=== PATIENT | female | born 1995 | race Asian ===

== ENCOUNTER 2017-03-08 07:46 | Inpatient (IN) | payer OTHER ==
[~2017-03-08] VITALS: Ht 160 cm; Wt 77.1 kg
--- NOTE | 2017-03-08 08:08 | NUR ---
MSE COMPLETED BY DR KRAMER.
--- NOTE | 2017-03-08 08:11 | NUR ---
RT AT BEDSIDE.
--- NOTE | 2017-03-08 08:14 | NUR ---
SALESPERSON AUTOMOBILES AT BEDSIDE.
--- NOTE | 2017-03-08 08:18 | NUR ---
PT MEDICATED WITH SOLUMEDROL SLOW IVP PER ORDERS, PT DENIES ALLERGIES TO MEDICATIONS, NS INFUSING PER ORDERS, IV SITE PATENT, NO REDNESS OR SWELLING NOTED. PT DENIES ALLERGIES TO MEDICATIONS.
--- NOTE | 2017-03-08 08:18 | NUR ---
X-RAY AT BEDSIDE.
[2017-03-08 08:22] LABS: BASOPHIL % 0.2 % (0-2); PLATELET COUNT 208 x10^3mcL (130-400); RED CELL DISTRIBUTION WIDTH 13.5 % (11.5-14.5)
[2017-03-08 08:40] LABS: ALBUMIN 3.8 g/dL (3.4-5.0); ALKALINE PHOSPHATASE 64 U/L (46-116); ALT/SGPT 33 U/L (14-59); AST/SGOT 21 U/L (15-37); BILIRUBIN TOTAL 0.58 mg/dL (0.20-1.00); CALCIUM 8.8 mg/dL (8.5-10.1); CARBON DIOXIDE 25.1 mmol/L (21-32); CHLORIDE SERUM 104 mmol/L (98-107); CREATININE SERUM 0.7 mg/dL (0.6-1.0); GFR1 > 60 mL/min; GLUCOSE SERUM 100 mg/dL (74-106); POTASSIUM SERUM 4.1 mmol/L (3.5-5.1); SODIUM SERUM 139 mmol/L (136-145); TOTAL PROTEIN, SERUM 7.3 g/dL (6.4-8.2)
--- NOTE | 2017-03-08 08:42 | NUR ---
BREATHING TREATMENT #2 IN PROGRESS, MOTHER AT BEDSIDE AND WITH RT LUIS DANIEL.
--- NOTE | 2017-03-08 09:18 | NUR ---
DR KRAMER AT BEDSIDE TO RE-EVALUATE PT. PT REPORTS FEELING BETTER, PT RESTING COMFORTABLY IN BED WITH NO DISTRESS NOTED. PTS MOTHER AT BEDSIDE.
--- NOTE | 2017-03-08 09:28 | NUR ---
DR KRAMER AT BEDSIDE TO DISCUSS PLAN OF CARE WITH PT AND PTS MOTHER.
[2017-03-08] MEDS ORDERED: XOPENEX HF0.045 MG/1 IH (09:30)
--- NOTE | 2017-03-08 09:40 | NUR ---
TOOK TELEPHONE ORDERS FROM DR GONZALES TO ADMIT PT TO TELE. ORDERS READ BACK AND VERIFIED.
--- NOTE | 2017-03-08 10:12 | NUR ---
REPORT GIVEN TO STACEY TO ASSUME CARE OF PT.
--- NOTE | 2017-03-08 10:33 | NUR ---
SECOND LITER OF NS INFUSING PER DR KRAMER ORDERS, IV SITE PATENT, NO REDNESS OR SWELLING NOTED.
--- NOTE | 2017-03-08 11:00 | NUR ---
PT RECEIVED FROM ER AWAKE, ALERT AND ORIENTED. WITH MILD SOB ON EXC.NO ACUTE RESP. DISTRESS NOTED.ON RA SATS 94%. VS WNL. IVF INFUSING WELL AND SITE CLEAR. PT ORIENTED TO ROOM, CALL LIGHT WITHIN REACH. FAMILY AT BEDSIDE. ADMISSION ASSESMENT COMPLETED. WILL CONTINUE W/PLAN OF CARE.
[2017-03-08 11:48] VITALS: BP 106/51
[2017-03-08 12:42] VITALS: BP 106/51
[2017-03-08 13:46] VITALS: BP 106/51
[2017-03-08 16:52] VITALS: BP 106/53
--- NOTE | 2017-03-08 17:40 | NUR ---
PT RECEIVED HHN TX WITH GOOD RELIEF. NO SOB NOTED AT THIS TIME. FAMILY AT BEDSIDE. NO C/O PAIN OR DISCOMFORT
--- NOTE | 2017-03-08 19:24 | NUR ---
REMAINS IN NO DISTRESS. FAMILY AT BEDSIDE. NO SOB NOTED AT THIS TIME. NO C/O PAIN OR DISCOMFORT. CALL LIGHT WITHIN EACH. WILL BE ENDORSED TO INCOMING SHIFT.
--- NOTE | 2017-03-08 20:02 | NUR ---
PATIENT AWAKE IN BED. RESPIRATION EVEN AND UNLABORED, ON O2 AT 2L PER NASAL CANNULA, ON RT PROTOCOL. ONGOING 0.9 NS AT 10 CC/HR INFUSING WELL AT THE LEFT ANTECUBITAL AREA. DENIES PAIN AT THIS TIME. VOIDING FREELY WITHOUT DIFFICULTY. SKIN DRY AND INTACT. SCD'S TO BLE. ON TELE #3. WILL CONTINUE TO MONITOR.
[2017-03-08 21:29] VITALS: BP 121/47
[2017-03-09 06:19] VITALS: BP 133/54
[2017-03-09 06:23] LABS: PLATELET COUNT 195 x10^3mcL (130-400); RED CELL DISTRIBUTION WIDTH 13.7 % (11.5-14.5)
--- NOTE | 2017-03-09 06:38 | NUR ---
PATIENT ASLEEP IN BED. NO ACUTE DISTRESS NOTED, ON O2 2L PER NASAL CANNULA. MOTHER STAYED OVERNIGHT. IV SITE NO SIGN OF INFILTRATION. ASSISTED WITH NEEDS. SAFETY OBSERVED. PLACED CALL LIGHT WITHIN REACH AT ALL TIMES.
[2017-03-09 06:41] LABS: BASOPHIL % 0 % (0-2)
--- NOTE | 2017-03-09 07:39 | NUR ---
PT WAS ENDORSE TO ME, PT IS SLEEPING, NO ACUTE DISTRESS NOTED OR PAIN. PT ON 2L NC, IV INTACT, NO SWELLING OR REDNESS NOTED. CALL LIGHT IN REACH BED IN LOW POSITION, WILL CONTINUE PLAN OF CARE.
[2017-03-09 08:37] VITALS: BP 107/53
--- NOTE | 2017-03-09 09:00 | NUR ---
PT TOLERATED MORNING MED. PT FATHER AT BEDSIDE, SHE DENIES ANY ACUTE RESP DISTRESS OR DISCOMFORT AT THIS TIME. CALL LIGHT IN REACH, BED IN LOW POSITION, WILL CONTINUE PLAN OF CARE.
--- NOTE | 2017-03-09 12:41 | NUR ---
PT IS SITTING UP IN BED HAVING HER LUNCH, HER FATHER IS AT HER BEDSIDE. NO ACUTE RESP DISTRESS NOTED, PT DENIES PAIN AT THIS TIME. CALL LIGHT IN REACH, BED IN LOW POSITION, WILL CONTINUE PLAN OF CARE.
[2017-03-09 13:37] VITALS: BP 96/47
[2017-03-09 17:28] VITALS: BP 103/47
--- NOTE | 2017-03-09 18:58 | NUR ---
PT SITTING UP IN BED WATCHING TV WITH HER FATHER AT HER BEDSIDE. PT DENIES ANY PAIN OR RESP DISTRESS AT THIS TIME. CALL LIGHT IN REACH, BED AT LOW POSITION, WILL ENDORSE PT TO INCOMING NURSE.
--- NOTE | 2017-03-09 19:07 | NUR ---
NURSING CO-SIGN THE DOCUMENTATION ENTERED BY THE RN YANE HAS BEEN REVIEWED. REVIEWED/CO-SIGNED BY: Rosalinda Kemp DOCUMENTATION DONE BY:Jude GASPAR
--- NOTE | 2017-03-09 19:39 | NUR ---
PT CURRENTLY RESTING IN BED, NO ACUTE DISTRESS. A/O X4. TELE #3 SHOWING SINUS TACHYCARDIA, DENIES CHEST PAIN. PULSES PALPABLE IN ALL EXTREMITIES, NO EDEMA NOTED. BILATERAL WHEEZING NOTED, DENIES SOB AT THIS TIME. BOWEL SOUNDS ACTIVE, LAST BM 03/07/17. VOIDING WELL. AMBULATORY. SKIN INTACT. DENIES PAIN AT THIS TIME. IV PATENT AND INTACT. BED IN LOWEST POSITION, SIDE RAILS UP X2, SCDS IN PLACE, CALL LIGHT WITHIN REACH. WILL CONTINUE TO MONITOR.
[2017-03-09 20:55] VITALS: BP 114/66
--- NOTE | 2017-03-10 00:55 | NUR ---
PT CURRENTLY RESTING IN BED, NO ACUTE DISTRESS. WILL CONTINUE TO MONITOR.
[2017-03-10 05:53] VITALS: BP 104/52
--- NOTE | 2017-03-10 06:26 | NUR ---
PT SLEPT PERIODICALLY THROUGHOUT NIGHT. NO ACUTE DISTRESS. ALL NEEDS MET AND ATTENDED TO. NO SIGNIFICANT CHANGES. IV PATENT AND INTACT. BED IN LOWEST POSITION, SIDE RAILS UP X2, SCDS IN PLACE, CALL LIGHT WITHIN REACH. WILL ENDORSE CARE TO ONCOMING NURSE.
--- NOTE | 2017-03-10 07:21 | NUR ---
PT WAS ENDORSE TO ME THIS MORNING, NO ACUTE RESP DISTRESS NOTED. PT IS SLEEPING VERY COMFORTABLE WITH MOTHER AT HER SIDE. CALL LIGHT IN REACH, BED IN LOW POSITION. WILL CONTINUE PLAN OF CARE.
[2017-03-10 08:43] VITALS: BP 106/54
[2017-03-10 09:43] VITALS: BP 106/54
--- NOTE | 2017-03-10 09:49 | NUR ---
DR. GONZALES MADE ROUNDS, PT WILL BE DISCHARGE TODAY.
--- NOTE | 2017-03-10 10:01 | NUR ---
DR GONZALES MADE AWARE THAT PT/ MOTHER REFUSED LOVENOX
--- NOTE | 2017-03-10 11:30 | NUR ---
O2 SATS 97% IN ROOM AIR. PT IN NO DISTRESS. AWAKE AND ALERT. WILL BE DC'D HOME TODAY. FAMILY AT BEDSIDE.
--- NOTE | 2017-03-10 13:56 | NUR ---
PT O2 97% ROOM AIR, NO ACUTE RESP DISTRESS NOTED OR PAIN. PT FATHER AT BEDSIDE. PT WAS DISCHARGED AND LEFT WITH FATHER AT HER SIDE.
== END 2017-03-10 13:43 | disposition home or self-care (01) | DRG 141 ==
LOC: ED 07:46 → DU 09:41
PROVIDERS: Emergency Medicine; ADMIT Internal Medicine Pulmonary Disease
DX: J45.901 Unspecified asthma with (acute) exacerbation (principal); R00.0 Tachycardia, unspecified; R09.02 Hypoxemia; Z87.01 Personal history of pneumonia (recurrent); Z91.010 Allergy to peanuts
CPT/HCPCS: 36600; 83880; 94150; J0456; J1650; J2920; J2930; J7030; J7613; J7626; J7644; Q0092

== ENCOUNTER 2018-04-30 22:06 | Emergency (ER) | payer OTHER ==
[~2018-04-30] VITALS: Ht 160 cm; Wt 81.8 kg
[~2018-04-30 22:06] MED LIST: XOPENEX HF0.045 MG/1 IH
[2018-05-01 01:45] VITALS: BP 125/59
== END 2018-05-01 01:45 | disposition home or self-care (01) ==
LOC: ED 22:06
DX: J45.901 Unspecified asthma with (acute) exacerbation (principal); Z91.011 Allergy to milk products; Z91.010 Allergy to peanuts
CPT/HCPCS: J2930; J7613; J7644

== ENCOUNTER 2019-09-04 10:21 | Emergency (ER) | payer OTHER ==
[~2019-09-04] VITALS: Ht 160 cm; Wt 87.1 kg
[2019-09-04 10:29] VITALS: BP 123/49; Ht 160 cm; Wt 87.1 kg
== END 2019-09-04 11:02 | disposition home or self-care (01) ==
LOC: ED 10:21
DX: J45.909 Unspecified asthma, uncomplicated (principal); Z76.0 Encounter for issue of repeat prescription; Z91.011 Allergy to milk products; Z91.010 Allergy to peanuts